=== PATIENT | male | born 1985 | race Two or more races ===

== ENCOUNTER 2022-04-16 09:45 | Emergency (ER) | payer OTHER ==
[~2022-04-16] VITALS: Ht 180.3 cm; Wt 102.1 kg
== END 2022-04-16 11:16 | disposition home or self-care (01) ==
LOC: ER 09:45
DX: K62.89 Other specified diseases of anus and rectum (principal); K64.4 Residual hemorrhoidal skin tags

== ENCOUNTER 2022-04-19 08:17 | Emergency (ER) | payer OTHER ==
[~2022-04-19] VITALS: Ht 180.3 cm; Wt 102.1 kg
[2022-04-19] MEDS ORDERED: AMOX-CLAV 875-1 EAC1 PO (18:10)
== END 2022-04-19 18:37 | disposition home or self-care (01) ==
LOC: ER 08:17
DX: K62.89 Other specified diseases of anus and rectum (principal); K61.0 Anal abscess
CPT/HCPCS: 36415; 72193; Q9965